=== PATIENT | female | born 1990 | race Two or more races ===

== ENCOUNTER 2017-05-19 16:10 | Observation (INO) | payer MEDICAID ==
[~2017-05-19] VITALS: Ht 30.5 cm; Wt 0.5 kg
[2017-05-19] MEDS ORDERED: hydrALAZINE HCL 20 MG/ML VL ONE (16:33)
[2017-05-19] MEDS ORDERED: BETAMETHASONE ACET (6MG/ML) 5ML VIAL ONE (16:34)
[2017-05-19] MEDS ORDERED: MAGNESIUM SULFATE 40MG/ML 1,000 ML IV ONE (16:44)
[2017-05-19] MEDS ORDERED: BETAMETHASONE ACET (6MG/ML) 5ML VIAL IM ONE (16:45)
[2017-05-19] MEDS ORDERED: hydrALAZINE HCL 20 MG/ML VL IV ONE (16:45)
[2017-05-19] MEDS ORDERED: MAGNESIUM SULFATE 40MG/ML 1,000 ML IV SCH ×2 (16:47→16:50)
[2017-05-19] MEDS ORDERED: SODIUM CHLORIDE 0.9% 1,000 ML IV SCH ×2 (16:47→16:50)
[2017-05-19 16:53] LABS: Urine RBC None Seen /hpf (0 - 4)
[2017-05-19 16:57] LABS: Basophils # (auto) 0.1 uL; Basophils % (auto) 0.8 % (0.0-2.0); Eosinophils # (auto) 0.1 uL; Eosinophils % (auto) 0.8 % (0.0-7.0); Hematocrit 38.1 % (36.0-46.0); Hemoglobin 13.1 g/dL (12.2-16.2); Lymphocytes # (auto) 2.4 uL; Lymphocytes % (auto) 28.8 % (10.0-50.0); Mean Corpuscular Hemoglobin 32.7 pg (28.0-32.0); Mean Corpuscular Hgb Conc. 34.4 g/dL (32.0-36.0); Mean Corpuscular Volume 94.9 fL (80.0-100.0); Mean Platelet Volume 9.9 fL (6.9-10.8); Monocytes # (auto) 0.4 uL; Neutrophils # (auto) 5.4 uL; Neutrophils % (auto) 64.6 % (37.0-80.0); Nucleated Red Blood Cells % 0.1 %; Platelet Count (auto) 159 10^3/uL (140-450); Red Cell Distribution Width 14.1 % (11.8-14.3); White Blood Cell 8.4 10^3/uL (4.4-10.8)
[2017-05-19 17:03] LABS: Urine Bilirubin Negative (Negative); Urine Blood Negative /uL (Negative); Urine Color Yellow (Yellow); Urine Glucose Normal (Normal); Urine Ketone Negative (Negative); Urine Nitrite Negative (Negative); Urine Squamous Epithelial Cell FEW /hpf (<5); Urine Urobilinogen Normal (Negative)
[2017-05-19 17:12] LABS: INR 0.85 (0.9-1.15); Partial Thromboplastin Time 29.3 sec (22.64-33.71); Prothrombin Time 9.2 sec (9.37-12.3)
[2017-05-19 17:24] LABS: Albumin 2.6 g/dL (3.4-5.0); BUN/Creatinine Ratio 17.8; Bilirubin, Total 0.3 mg/dL (0.2-1.0); Calcium 8.8 mg/dL (8.5-10.1); Potassium 3.2 mmol/L (3.5-5.1); Total Protein 7.1 g/dL (6.4-8.2); Uric Acid 3.9 mg/dL (2.6-6.0)
== END 2017-05-19 19:18 | disposition short-term general hospital (02) | DRG 566 ==
LOC: LDRP 16:10
PROVIDERS: ADMIT Obstetrics & Gynecology; ATTEND Obstetrics & Gynecology
DX: O13.3 Gestational [pregnancy-induced] hypertension without significant proteinuria, third trimester (principal); O60.03 Preterm labor without delivery, third trimester; Z3A.36 36 weeks gestation of pregnancy
CPT/HCPCS: 36415; 59025; 76805; 76818; 80053; 80307; 81001; 81002; 83735; 84550; 85025; 85379; 85610; 85730; 86850; 86900; 86901; 96365; 96366; G0378; J0360; J0702; J3475; 96372